=== PATIENT | female | born 1930 | race Caucasian/White ===

== ENCOUNTER 2017-02-27 08:23 | Day surgery (SDC) | payer OTHER, MEDICAID ==
[2017-02-27] MEDS ORDERED: NS 500 ML IV 500 ML IV ONE (08:58)
[2017-02-27] MEDS ORDERED: TETRACAINE 0.5% OPHTH 1 DOSE AFFEYE ONE ×2 (09:15→12:46)
[2017-02-27] MEDS ORDERED: VIGAMOX 0.5% OPHTH 1 DOSE AFFEYE ONE ×5 (09:20→13:06)
[2017-02-27] MEDS ORDERED: PROLENSA OPHTH 1 DOSE AFFEYE ONE (09:31)
[2017-02-27] MEDS ORDERED: ALPHAGAN-P OPHTH 1 DOSE AFFEYE ONE (09:32)
[2017-02-27] MEDS ORDERED: CYCLOGYL 1% OPHTH 1 DOSE OP ONE ×3 (09:33→09:35)
[2017-02-27] MEDS ORDERED: MYDRIACIL OPHTH 1 DOSE AFFEYE ONE ×3 (09:33→09:35)
[2017-02-27] MEDS ORDERED: AK-DILATE 2.5% OPHTH 1 DOSE OP ONE ×3 (09:33→09:35)
[2017-02-27] MEDS ORDERED: BETADINE OPHTH SOLN 5% EACHEYE ONE (12:46)
[2017-02-27] MEDS ORDERED: ADRENALINE CHL INJ IJ ONE (12:56)
[2017-02-27] MEDS ORDERED: XYLOCAINE-MPF 1% IJ ONE (12:56)
[2017-02-27] MEDS ORDERED: DUOVISC IO ONE (12:56)
[2017-02-27] MEDS ORDERED: BSS OPHTH (PLAIN) 500 ML with VANCOMYCIN HCL 500 MG VIAL 25 MG, ADRENALINE CHL INJ 1 MG IR ONE ×3 (12:56)
[2017-02-27 14:07] VITALS: BP 153/75
[2017-02-27] MEDS ORDERED: VERSED ONE (14:15)
[2017-02-27] MEDS ORDERED: DIPRIVAN VIAL ONE (14:15)
== END 2017-02-27 13:30 ==
LOC: SURG1 08:23
PROVIDERS: ATTEND Ophthalmology
PROC: 08DJ3ZZ Extraction of Right Lens, Percutaneous Approach (ICD-10-PCS; principal; 2017-02-27 13:45)
PROC: 08RJ3JZ Replacement of Right Lens with Synthetic Substitute, Percutaneous Approach (ICD-10-PCS; principal; 2017-02-27 13:45)
DX: H25.11 Age-related nuclear cataract, right eye (principal); H25.011 Cortical age-related cataract, right eye; H25.041 Posterior subcapsular polar age-related cataract, right eye
CPT/HCPCS: 99100; A4217; J0170; J2250; J3370; J3490

== ENCOUNTER 2017-03-13 08:43 | Day surgery (SDC) | payer OTHER, MEDICAID ==
[2017-03-13] MEDS ORDERED: NS 500 ML IV 500 ML IV ONE (09:40)
[2017-03-13] MEDS ORDERED: DUREZOL OPHTH 1 DOSE AFFEYE ONE (09:45)
[2017-03-13] MEDS ORDERED: TETRACAINE 0.5% OPHTH 1 DOSE AFFEYE ONE ×5 (09:45→12:35)
[2017-03-13] MEDS ORDERED: VIGAMOX 0.5% OPHTH 1 DOSE AFFEYE ONE ×3 (09:56→12:49)
[2017-03-13] MEDS ORDERED: PROLENSA OPHTH 1 DOSE AFFEYE ONE (09:57)
[2017-03-13] MEDS ORDERED: MYDRIACIL OPHTH 1 DOSE AFFEYE ONE ×3 (10:00→10:10)
[2017-03-13] MEDS ORDERED: AK-DILATE 2.5% OPHTH 1 DOSE OP ONE ×3 (10:00→10:10)
[2017-03-13] MEDS ORDERED: CYCLOGYL 1% OPHTH 1 DOSE OP ONE ×3 (10:00→10:10)
[2017-03-13] MEDS ORDERED: BETADINE OPHTH SOLN 5% EACHEYE ONE (12:28)
[2017-03-13] MEDS ORDERED: DUOVISC IO ONE (12:35)
[2017-03-13] MEDS ORDERED: XYLOCAINE-MPF 1% IJ ONE (12:35)
[2017-03-13] MEDS ORDERED: BSS OPHTH (PLAIN) 500 ML with VANCOMYCIN HCL 500 MG VIAL 25 MG, ADRENALINE CHL INJ 1 MG IR ONE ×3 (12:35)
[2017-03-13] MEDS ORDERED: ADRENALINE CHL INJ IJ ONE (12:35)
[2017-03-13] MEDS ORDERED: DIPRIVAN VIAL ONE (14:02)
[2017-03-13 14:21] VITALS: BP 151/78
== END 2017-03-13 13:15 | disposition home or self-care (01) ==
LOC: SURG1 08:43
PROVIDERS: ATTEND Ophthalmology
PROC: 08RK3JZ Replacement of Left Lens with Synthetic Substitute, Percutaneous Approach (ICD-10-PCS; principal; 2017-03-13 15:15)
PROC: 08DK3ZZ Extraction of Left Lens, Percutaneous Approach (ICD-10-PCS; principal; 2017-03-13 15:15)
DX: H25.12 Age-related nuclear cataract, left eye (principal); H25.012 Cortical age-related cataract, left eye; H25.042 Posterior subcapsular polar age-related cataract, left eye; H52.222 Regular astigmatism, left eye
CPT/HCPCS: 99100; A4217; J0170; J3370; J3490

== ENCOUNTER 2018-08-04 13:25 | Inpatient (IN) ==
[2018-08-04] MEDS ORDERED: NS 1000 ML 1,000 ML IV ONE (13:37)
[2018-08-04] MEDS ORDERED: PROVENTIL NEB TX 0.083% 2.5MG/ 3ML NEB PRN (13:44)
[2018-08-04] MEDS ORDERED: NS 1000 ML 1,000 ML ONE (14:01)
[2018-08-04 14:36] LABS: BASOPHILS % (AUTO) 0.3 % (0.2-1.0); EOSINOPHILS % (AUTO) 0.2 % (0.9-2.9); HEMATOCRIT 33.8 % (36.0-47.0); HEMOGLOBIN 11.1 g/dL (12.0-16.0); LYMPHOCYTES # (AUTO) 1.3 X10^3/uL (1.3-2.9); LYMPHOCYTES % (AUTO) 10.6 % (21.0-51.0); MEAN CORPUSCULAR HEMOGLOBIN 31.2 pg (27.0-34.0); MEAN CORPUSCULAR HGB CONC 32.9 g/dL (33.0-35.0); MEAN PLATELET VOLUME 7.7 fL (7.4-11.0); MONOCYTES # (AUTO) 1.8 x10^3/uL (0.3-0.8); MONOCYTES % (AUTO) 14.5 % (0.0-13.0); NEUTROPHILS # (AUTO) 9.3 x10^3/uL (2.2-4.8); NEUTROPHILS % (AUTO) 74.4 % (42.0-75.0); PLATELET COUNT 266 X10^3/uL (150.0-450.0); RED BLOOD COUNT 3.56 X10^6/uL (3.5-5.4); RED CELL DISTRIBUTION WIDTH 13.4 % (11.6-16.5); WHITE BLOOD COUNT 12.4 X10^3/uL (3.6-10.0)
[2018-08-04 14:40] LABS: ABG BASE EXCESS 6.2 mmol/L (-2.0-2.0)
--- NOTE | 2018-08-04 14:40 | RAD ---
Examination: PA chest History: COPD bronchitis renal failure Comparison 07/01/2016 Findings: The heart is upper normal in transverse diameter. There are bilateral lower lobe pulmonary densities consistent with pneumonia/atelectasis. This is most advanced at the left base where the diaphragm and costophrenic angle are obscured. The upper lungs remain clear. There is no pneumothorax. Impression: Borderline cardiomegaly with left lower lobe consolidation and more linear areas of atelectasis right base. A left pleural effusion may be present. Reported By:
[2018-08-04 14:41] LABS: ABG HCO3 31.8 mmol/L (22-26)
[2018-08-04] MEDS: DUONEB 0.5 MG/3 MG NEB SCH ×2 (14:48→17:16)
[2018-08-04] MEDS ORDERED: SALINE 3% 15 ML NEB TX NEB ONE ×2 (14:51→17:24)
[2018-08-04 14:52] LABS: ALBUMIN 1.9 g/dL (3.4-5.0); CALCIUM 8.9 mg/dL (8.5-10.1); CARBON DIOXIDE 30.3 mmol/L (21-32); COR CA(FOR HYPOALB) 10.6 mg/dL (8.5-10.1); CREATININE 1.21 mg/dL (0.55-1.02); MAGNESIUM 1.8 mg/dL (1.7-2.9); TOTAL PROTEIN 6.4 g/dL (6.4-8.2)
[2018-08-04] MEDS ORDERED: SOLU-Medrol 125 MG VIAL IVP SCH (15:00)
[2018-08-04] MEDS: ROCEPHIN VIAL 1 GRAM IVP SCH (15:32)
[2018-08-04] MEDS: ZITHROMAX INJ 500 MG VIAL 500 MG in NS 250 ML IV 250 ML IV SCH (15:33)
[2018-08-04 15:34] VITALS: BMI 20.3
[2018-08-04] MEDS: PULMICORT NEB TX 0.5 MG NEB SCH (21:00)
[2018-08-04] MEDS: BROVANA IN SCH (21:00)
[2018-08-04] MEDS: SOLU-Medrol 40 MG VIAL IVP SCH (21:12)
[2018-08-05] MEDS: DUONEB 0.5 MG/3 MG NEB SCH ×4 (00:45→17:01)
[2018-08-05 06:57] LABS: BASOPHILS % (AUTO) 0.4 % (0.2-1.0); HEMATOCRIT 32.7 % (36.0-47.0); LYMPHOCYTES # (AUTO) 0.5 X10^3/uL (1.3-2.9); MEAN CORPUSCULAR HEMOGLOBIN 31.6 pg (27.0-34.0); MEAN CORPUSCULAR HGB CONC 33.7 g/dL (33.0-35.0); MEAN CORPUSCULAR VOLUME 93.8 fL (80.0-100.0); MEAN PLATELET VOLUME 7.9 fL (7.4-11.0); MONOCYTES # (AUTO) 0.1 x10^3/uL (0.3-0.8); MONOCYTES % (AUTO) 1.6 % (0.0-13.0); NEUTROPHILS # (AUTO) 7.5 x10^3/uL (2.2-4.8); PLATELET COUNT 277 X10^3/uL (150.0-450.0); RED BLOOD COUNT 3.49 X10^6/uL (3.5-5.4); RED CELL DISTRIBUTION WIDTH 13.1 % (11.6-16.5); WHITE BLOOD COUNT 8.1 X10^3/uL (3.6-10.0)
--- NOTE | 2018-08-05 07:00 | RAD ---
HISTORY: Bronchitis, COPD Study: Chest AP portable Comparison: 08/04/2018 07/01/2016 Findings: The heart is enlarged. No definite congestive heart failure is noted. The aorta is somewhat ectatic. The lungs are well inflated and free of acute alveolar infiltrates. There is a focus of subsegmental atelectasis in the right lung base. A small left pleural effusion is likely present. IMPRESSION: Mild cardiomegaly without congestive heart failure Subsegmental atelectasis right lung base Small left pleural effusion Reported By:
[2018-08-05 07:22] LABS: PLATELET MORPHOLOGY COMMENT NORMAL (NORMAL)
[2018-08-05 07:23] LABS: ALANINE AMINOTRANSFERASE 40 Units/L (12-78); ALBUMIN 1.9 g/dL (3.4-5.0); ALKALINE PHOSPHATASE 73 Units/L (46-116); ASPARTATE AMINO TRANSFERASE 67 Units/L (15-37); BLOOD UREA NITROGEN 30 mg/dL (7-18); CALCIUM 8.8 mg/dL (8.5-10.1); CARBON DIOXIDE 28.3 mmol/L (21-32); CHLORIDE 107 mmol/L (98-107); COR CA(FOR HYPOALB) 10.5 mg/dL (8.5-10.1); COR NA(FOR HYPERGLY) 145 mmol/L (136-145); CREATININE 1.05 mg/dL (0.55-1.02); SODIUM 143 mmol/L (136-145); TOTAL PROTEIN 6.6 g/dL (6.4-8.2); eGFR NON BLACK RACES 52 (>60)
[2018-08-05] MEDS: SOLU-Medrol 40 MG VIAL IVP SCH ×3 (08:39→20:59)
[2018-08-05] MEDS ORDERED: NYSTATIN POWDER TOP PRN (09:30)
[2018-08-05] MEDS ORDERED: DUONEB 0.5 MG/3 MG IN SCH (09:30)
[2018-08-05] MEDS: BROVANA IN SCH ×2 (09:33→21:41)
[2018-08-05] MEDS: PULMICORT NEB TX 0.5 MG NEB SCH ×2 (09:33→21:36)
[2018-08-05] MEDS: ROCEPHIN VIAL 1 GRAM IVP SCH (09:46)
[2018-08-05] MEDS: ZITHROMAX INJ 500 MG VIAL 500 MG in NS 250 ML IV 250 ML IV SCH (09:46)
[2018-08-05] MEDS: NS 1000 ML 1,000 ML IV SCH (10:07)
[2018-08-05] MEDS ORDERED: COREG TAB 12.5 MG PO ONE (10:57)
[2018-08-05] MEDS: COREG TAB 12.5 MG PO SCH ×2 (11:03→21:03)
[2018-08-05] MEDS ORDERED: BUTT CREAM (COMPOUND) ONE (12:07)
[2018-08-05] MEDS ORDERED: BUTT CREAM (COMPOUND) TOP PRN (12:09)
[2018-08-05 14:06] LABS: BILIRUBIN,URINE NEGATIVE (NEGATIVE); BLOOD/HEMOGLOBIN,URINE 1+ (NEGATIVE); GLUCOSE, URINE NEGATIVE (NEGATIVE); KETONES,URINE NEGATIVE (NEGATIVE); LEUKOCYTE ESTERASE ,URINE NEGATIVE (NEGATIVE); NITRITES,URINE NEGATIVE (NEGATIVE); PROTEIN,URINE 2+ (NEGATIVE); UROBILINOGEN,URINE NORMAL (NORMAL)
[2018-08-05 14:16] LABS: APPEARANCE,URINE CLEAR (CLEAR); COLOR,URINE YELLOW (YELLOW); RBC,URINE 0-2 /HPF (NONE SEEN)
[2018-08-05 14:17] LABS: AMORPHOUS SEDIMENT,UR 1+ /HPF (NEGATIVE); BACTERIA,URINE TRACE /HPF (NEGATIVE); SQUAMOUS EPITHELIAL CELL,UR NEGATIVE /HPF (NEGATIVE)
[2018-08-05] MEDS: NORCO 10/325 TAB PO PRN ×2 (14:25→20:36)
--- NOTE | 2018-08-05 17:18 | DR.H&P ---
H&P - History & Physical for Day of: H&P Date: 08/04/18 - Chief Complaint Chief Complaint: CCC, INCREASED WHEEZING - History of Present Illness History of Present Illness: 87 WF ADMITTED WITH COPD EXACERBATION, FAILED OUTPT THERAPY. PT IS RESIDENT OF [facility], WITH COPD INCREASED COUGH, COLD, CONGESTION AND DIFFUSE WHEEZING. PT HAS PMH OF OA, COPD, HTN, ENDER - Past Medical History Past Medical History: COPD, Coronary Artery Disease, Dementia, Depression, Hypertension - Past Surgical History Surgical History: Appendectomy, Cholecystectomy - Family History Family Medical History: GA, Heart Failure, Hypertension - Social History Does patient currently use any type of tobacco product: No Have you used tobacco products in the last 12 months: No Type of Tobacco Use: None Does any household member use tobacco: No Alcohol Use: None Drug Use: None - Medications Home Medications: codeine Allergy (Verified 08/04/18 23:16) meperidine Allergy (Verified 08/04/18 23:16) CONTINUE taking the following medications atorvastatin 40 mg PO HS 08/04/18 [History] gabapentin 800 mg PO BID 08/04/18 [History] guaifenesin [Mucinex] 600 mg PO DAILY 08/04/18 [History] hydrocodone-acetaminophen 1 tab PO Q6HR PRN 08/04/18 [History] ipratropium-albuterol 1 neb INHALATION Q6H PRN 08/04/18 [History] levofloxacin 500 mg PO DAILY 08/04/18 [History] meloxicam 7.5 mg PO DAILY 08/04/18 [History] nystatin 1 applic TOPICAL Q12H PRN 08/04/18 [History] omeprazole 20 mg PO DAILY 08/04/18 [History] - Review of Systems Constitutional: Chills, Malaise Eyes: No Symptoms Reported ENT: No Symptoms Reported Respiratory: Cough, Shortness of Breath, SOB with Excertion, Sputum, Wheezing Cardiovascular: No Symptoms Reported Gastrointestinal: Nausea Genitourinary: No Symptoms Reported Musculoskeletal: Back Pain Skin: No Symptoms Reported Neurological: No Symptoms Reported - Physical Exam Vital Signs: Temperature 99.0 F Pulse Rate [Right Brachial] 76 Pulse Rate 90 Respiratory Rate 18 Blood Pressure [Left Arm] 138/86 Blood Pressure [Right Arm] 154/74 Blood Pressure 151/78 O2 Sat by Pulse Oximetry 91 Oriented: Normal Eyes: Normal Ear: Normal Nose: Normal Throat: Normal Respiratory: Rhonchi Throughout, Wheezes Throughout, RLL Diminished, LLL Diminished Cardiovascular: Normal : Normal Auscultation: Bowel Sounds: Normal Palpation: Normal Tenderness: Normal Skin: Normal Musculoskeletal: Normal Psychiatric: Normal Mood Description: Calm Speech Pattern: Clear, Appropriate - Assessment/Plan (1) COPD exacerbation Status: Acute Plan: ADMIT, PNEUMONIA PROTOCOL WITH BLOOD AND SPUTUM CULTURES. IV ATBX, RESP CARE, SUPPLEMENTAL O2. VERIFY HOME MEDICATION (2) CAD (coronary artery disease) Status: Chronic (3) Hyperlipidemia Status: Chronic (4) Hypertension Status: Chronic (5) GERD (gastroesophageal reflux disease) Status: Chronic (6) Anxiety Status: Chronic - Allergies Allergies/Adverse Reactions: Allergies Allergy/AdvReac Type Severity Reaction Status Date / Time codeine Allergy Verified 08/04/18 23:16 meperidine Allergy Verified 08/04/18 23:16
--- NOTE | 2018-08-05 17:21 | PCM.PROG ---
Progress Note - Progress Note for Day of Date of Exam: 08/05/18 - Subjective Subjective: 87 WF ADMITTED ON 08/04 WITH COPD EXACERBATION, PT CURRENTLY ON IV ATBX AND RESP THERAPY WITH SPUTUM CULTURE COLLECTED ON ADMISSION. PT CXR WITH MILD EFFUSION. BP MONITORING - Past Medical Family Social History Past Med/Fam/Surg Hx: No changes since H&P Allergies: Allergies codeine Allergy (Verified 08/04/18 23:16) meperidine Allergy (Verified 08/04/18 23:16) - Review of Systems ROS: No change since H&P - Vital Signs and I&O's Vital Signs: Temperature 99.0 F Pulse Rate [Right Brachial] 76 Pulse Rate 90 Respiratory Rate 18 Blood Pressure [Left Arm] 138/86 Blood Pressure [Right Arm] 154/74 Blood Pressure 151/78 O2 Sat by Pulse Oximetry 91 Intake and Output: Intake & Output 08/03/18 08/04/18 08/05/18 08/06/18 11:59 11:59 11:59 11:59 Intake Total 540 / 540 600 / 600 Output Total 300 / 300 Balance 540 / 540 300 / 300 - Physical Exam Oriented: Normal Eyes: Normal Ear: Normal Nose: Normal Throat: Normal Respiratory: Diminished, Rhonchi Cardiovascular: Normal : Normal Auscultation: Bowel Sounds: Normal Tenderness: Normal Skin: Normal Musculoskeletal: Normal Psychiatric: Normal Mood Description: Calm Speech Pattern: Clear, Appropriate - Laboratory and Diagnostics Result Diagrams: 08/05/18 06:45 08/05/18 06:45 Labs: 08/05/18 09:40 Sputum - Expectorated Sputum - Final 08/04/18 14:58 Sputum - Expectorated Sputum Sputum Culture - Final 08/04/18 14:58 Sputum - Expectorated Sputum - Final Laboratory WBC 8.1 X10^3/uL (3.6-10.0) 08/05/18 06:45 RBC 3.49 X10^6/uL (3.5-5.4) L 08/05/18 06:45 Hgb 11.0 g/dL (12.0-16.0) L 08/05/18 06:45 Hct 32.7 % (36.0-47.0) L 08/05/18 06:45 MCV 93.8 fL (80.0-100.0) 08/05/18 06:45 MCH 31.6 pg (27.0-34.0) 08/05/18 06:45 MCHC 33.7 g/dL (33.0-35.0) 08/05/18 06:45 RDW 13.1 % (11.6-16.5) 08/05/18 06:45 Plt Count 277 X10^3/uL (150.0-450.0) 08/05/18 06:45 Plt Count Comment Adequate (ADEQUATE) 08/05/18 06:45 MPV 7.9 fL (7.4-11.0) 08/05/18 06:45 Neut % (Auto) 92.0 % (42.0-75.0) H 08/05/18 06:45 Lymph % (Auto) 6.0 % (21.0-51.0) L 08/05/18 06:45 [place] % (Auto) 1.6 % (0.0-13.0) 08/05/18 06:45 Eos % (Auto) 0.0 % (0.9-2.9) L 08/05/18 06:45 Baso % (Auto) 0.4 % (0.2-1.0) 08/05/18 06:45 Neut # (Auto) 7.5 x10^3/uL (2.2-4.8) H 08/05/18 06:45 Lymph # (Auto) 0.5 X10^3/uL (1.3-2.9) L 08/05/18 06:45 [place] # (Auto) 0.1 x10^3/uL (0.3-0.8) L 08/05/18 06:45 Eos # (Auto) 0.0 x10^3/uL (0.0-0.2) 08/05/18 06:45 Baso # (Auto) 0.0 X10^3/uL (0.0-0.1) 08/05/18 06:45 Absolute Nucleated RBC 0.0 /100WBC 08/05/18 06:45 Total Counted 100 08/05/18 06:45 Neutrophils % (Manual) 90 % (39-76) H 08/05/18 06:45 Lymphocytes % (Manual) 8 % (13-43) L 08/05/18 06:45 Monocytes % (Manual) 2 % (4-9) L 08/05/18 06:45 Plt Morphology Comment Normal (NORMAL) 08/05/18 06:45 RBC Morphology Normal (NORMAL) 08/05/18 06:45 Sample Site Right brachial 08/04/18 14:26 ABG pH 7.420 (7.35-7.45) 08/04/18 14:26 ABG pCO2 49.0 mmHg (35.0-45.0) H 08/04/18 14:26 ABG pO2 69.0 mmHg (80.0-100.0) L 08/04/18 14:26 ABG HCO3 31.8 mmol/L (22-26) H* 08/04/18 14:26 ABG O2 Saturation 94.0 % (90-100) 08/04/18 14:26 ABG Base Excess 6.2 mmol/L (-2.0-2.0) H 08/04/18 14:26 Pete Test Na 08/04/18 14:26 A-a Gradient 69.0 mmHg 08/04/18 14:26 FiO2 28.0 08/04/18 14:26 Blood Gas Comments Khadra well aw 08/04/18 14:26 Sodium 143 mmol/L (136-145) 08/05/18 06:45 Corrected Sodium 145 mmol/L (136-145) 08/05/18 06:45 Potassium 3.8 mmol/L (3.5-5.1) 08/05/18 06:45 Chloride 107 mmol/L (98-107) 08/05/18 06:45 Carbon Dioxide 28.3 mmol/L (21-32) 08/05/18 06:45 BUN 30 mg/dL (7-18) H 08/05/18 06:45 Creatinine 1.05 mg/dL (0.55-1.02) H 08/05/18 06:45 Est GFR (MDRD) Af Amer > 60 (>60) 08/05/18 06:45 Est GFR (MDRD) Non-Af 52 (>60) L 08/05/18 06:45 Glucose 170 mg/dL (65-99) H 08/05/18 06:45 Calcium 8.8 mg/dL (8.5-10.1) 08/05/18 06:45 Corrected Calcium 10.5 mg/dL (8.5-10.1) H 08/05/18 06:45 Magnesium 1.8 mg/dL (1.7-2.9) 08/04/18 14:25 Total Bilirubin 0.20 mg/dL (0.2-1.0) 08/05/18 06:45 AST 67 Units/L (15-37) H 08/05/18 06:45 ALT 40 Units/L (12-78) 08/05/18 06:45 Alkaline Phosphatase 73 Units/L (46-116) 08/05/18 06:45 Total Protein 6.6 g/dL (6.4-8.2) 08/05/18 06:45 Albumin 1.9 g/dL (3.4-5.0) L 08/05/18 06:45 Globulin 4.7 g/dL (2.5-4.5) H 08/05/18 06:45 Albumin/Globulin Ratio 0.4 Ratio (1.1-2.1) L 08/05/18 06:45 Specimen Type Catherized urine 08/05/18 13:55 Urine Color Yellow (YELLOW) 08/05/18 13:55 Urine Appearance Clear (CLEAR) 08/05/18 13:55 Urine pH 5.0 (5.0 - 8.0) 08/05/18 13:55 Ur Specific [place] 1.015 (1.000-1.030) 08/05/18 13:55 Urine Protein 2+ (NEGATIVE) 08/05/18 13:55 Urine Glucose (UA) Negative (NEGATIVE) 08/05/18 13:55 Urine Ketones Negative (NEGATIVE) 08/05/18 13:55 Urine Occult Blood 1+ (NEGATIVE) 08/05/18 13:55 Urine Nitrite Negative (NEGATIVE) 08/05/18 13:55 Urine Bilirubin Negative (NEGATIVE) 08/05/18 13:55 Urine Urobilinogen Normal (NORMAL) 08/05/18 13:55 Ur Leukocyte Esterase Negative (NEGATIVE) 08/05/18 13:55 Urine RBC 0-2 /HPF (NONE SEEN) 08/05/18 13:55 Urine WBC 0-2 /HPF (NONE SEEN) 08/05/18 13:55 Ur Squamous Epith Cells Negative /HPF (NEGATIVE) 08/05/18 13:55 Amorphous Sediment 1+ /HPF (NEGATIVE) 08/05/18 13:55 Urine Bacteria Trace /HPF (NEGATIVE) 08/05/18 13:55 Ur Culture Indicated? Yes/culture set up 08/05/18 13:55 - Plan (1) COPD exacerbation Status: Acute Plan: CONTINUE PNEUMONIA PROTOCOL WITH BLOOD AND SPUTUM CULTURES. IV ATBX, RESP CARE, SUPPLEMENTAL O2. CONTINUE HOME MEDICATION (2) CAD (coronary artery disease) Status: Chronic (3) Hyperlipidemia Status: Chronic (4) Hypertension Status: Chronic (5) GERD (gastroesophageal reflux disease) Status: Chronic (6) Anxiety Status: Chronic
[2018-08-05] MEDS: MIRALAX POWDER (1 DOSE 17 G) PO SCH (21:02)
[2018-08-05] MEDS: NEURONTIN CAP 400 MG PO SCH (21:03)
[2018-08-05] MEDS: LIPITOR TAB 40 MG PO SCH (21:03)
[2018-08-06] MEDS: DUONEB 0.5 MG/3 MG NEB SCH ×5 (00:46→20:33)
[2018-08-06 06:12] LABS: BASOPHILS % (AUTO) 0.2 % (0.2-1.0); HEMATOCRIT 30.8 % (36.0-47.0); HEMOGLOBIN 10.2 g/dL (12.0-16.0); LYMPHOCYTES # (AUTO) 0.6 X10^3/uL (1.3-2.9); MEAN CORPUSCULAR HEMOGLOBIN 31.3 pg (27.0-34.0); MEAN CORPUSCULAR HGB CONC 33.2 g/dL (33.0-35.0); MEAN CORPUSCULAR VOLUME 94.4 fL (80.0-100.0); MEAN PLATELET VOLUME 7.7 fL (7.4-11.0); MONOCYTES # (AUTO) 0.3 x10^3/uL (0.3-0.8); NEUTROPHILS # (AUTO) 15.1 x10^3/uL (2.2-4.8); NEUTROPHILS % (AUTO) 93.8 % (42.0-75.0); PLATELET COUNT 276 X10^3/uL (150.0-450.0); RED BLOOD COUNT 3.26 X10^6/uL (3.5-5.4); RED CELL DISTRIBUTION WIDTH 13.4 % (11.6-16.5); WHITE BLOOD COUNT 16.1 X10^3/uL (3.6-10.0)
[2018-08-06] MEDS: SOLU-Medrol 40 MG VIAL IVP SCH ×3 (06:15→21:32)
[2018-08-06 06:21] LABS: ALANINE AMINOTRANSFERASE 75 Units/L (12-78); ALBUMIN 1.9 g/dL (3.4-5.0); ALKALINE PHOSPHATASE 66 Units/L (46-116); ASPARTATE AMINO TRANSFERASE 113 Units/L (15-37); BLOOD UREA NITROGEN 36 mg/dL (7-18); CALCIUM 8.9 mg/dL (8.5-10.1); CARBON DIOXIDE 28.9 mmol/L (21-32); CHLORIDE 107 mmol/L (98-107); COR CA(FOR HYPOALB) 10.6 mg/dL (8.5-10.1); COR NA(FOR HYPERGLY) 146 mmol/L (136-145); CREATININE 0.99 mg/dL (0.55-1.02); SODIUM 144 mmol/L (136-145); TOTAL PROTEIN 6.1 g/dL (6.4-8.2); eGFR NON BLACK RACES 56 (>60)
[2018-08-06 07:06] LABS: PLATELET MORPHOLOGY COMMENT NORMAL (NORMAL)
[2018-08-06] MEDS: BROVANA IN SCH (08:32)
[2018-08-06] MEDS: PULMICORT NEB TX 0.5 MG NEB SCH (08:32)
[2018-08-06] MEDS: COREG TAB 12.5 MG PO SCH ×2 (08:53→21:33)
[2018-08-06] MEDS: ROCEPHIN VIAL 1 GRAM IVP SCH (08:54)
[2018-08-06] MEDS: PriLOSEC PO SCH (08:54)
[2018-08-06] MEDS: ZITHROMAX INJ 500 MG VIAL 500 MG in NS 250 ML IV 250 ML IV SCH (08:54)
[2018-08-06] MEDS: NEURONTIN CAP 400 MG PO SCH ×2 (08:54→21:32)
[2018-08-06] MEDS: MUCINEX EXPECTORANT PO SCH (08:54)
[2018-08-06] MEDS: NOLVADEX PO SCH (09:50)
[2018-08-06] MEDS: NS 1000 ML 1,000 ML IV SCH (11:27)
[2018-08-06] MEDS: NORCO 10/325 TAB PO PRN (16:54)
--- NOTE | 2018-08-06 17:08 | PCM.PROG ---
Progress Note - Progress Note for Day of Date of Exam: 08/06/18 - Subjective Subjective: 87 WF ADMITTED ON 08/04 WITH COPD EXACERBATION, PT CURRENTLY ON IV ATBX AND RESP THERAPY WITH SPUTUM CULTURE COLLECTED ON ADMISSION WITH NORMAL RESP ADDIE.PT CXR WITH MILD EFFUSION ON 08/05, WILL REPEAT AM CXR. BP MONITORING - Past Medical Family Social History Past Med/Fam/Surg Hx: No changes since H&P Allergies: Allergies codeine Allergy (Verified 08/04/18 23:16) meperidine Allergy (Verified 08/04/18 23:16) - Review of Systems ROS: No change since H&P - Vital Signs and I&O's Vital Signs: Temperature 98.1 F Pulse Rate [Right Brachial] 79 Pulse Rate 78 Respiratory Rate 18 Blood Pressure [Left Arm] 154/84 Blood Pressure [Right Arm] 154/74 Blood Pressure 151/78 O2 Sat by Pulse Oximetry 92 Intake and Output: Intake & Output 08/04/18 08/05/18 08/06/18 08/07/18 11:59 11:59 11:59 11:59 Intake Total 540 / 540 1080 / 1080 2380 / 2380 Output Total 300 / 300 Balance 540 / 540 780 / 780 2380 / 2380 - Physical Exam Oriented: Normal Eyes: Normal Ear: Normal Nose: Normal Throat: Normal Respiratory: Diminished, Rhonchi Cardiovascular: Normal : Normal Auscultation: Bowel Sounds: Normal Tenderness: Normal Skin: Normal Musculoskeletal: Normal Psychiatric: Normal Mood Description: Calm Speech Pattern: Clear, Appropriate - Laboratory and Diagnostics Result Diagrams: 08/06/18 05:55 08/06/18 05:55 Labs: 08/04/18 14:25 Blood Blood Culture - Preliminary 08/04/18 14:15 Blood Blood Culture - Preliminary 08/05/18 13:55 Urine,Clean Catch Urine Culture - Preliminary 08/05/18 09:40 Sputum - Expectorated Sputum Sputum Culture - Preliminary 08/05/18 09:40 Sputum - Expectorated Sputum - Final 08/04/18 14:58 Sputum - Expectorated Sputum Sputum Culture - Final 08/04/18 14:58 Sputum - Expectorated Sputum - Final Laboratory WBC 16.1 X10^3/uL (3.6-10.0) H D 08/06/18 05:55 RBC 3.26 X10^6/uL (3.5-5.4) L 08/06/18 05:55 Hgb 10.2 g/dL (12.0-16.0) L 08/06/18 05:55 Hct 30.8 % (36.0-47.0) L 08/06/18 05:55 MCV 94.4 fL (80.0-100.0) 08/06/18 05:55 MCH 31.3 pg (27.0-34.0) 08/06/18 05:55 MCHC 33.2 g/dL (33.0-35.0) 08/06/18 05:55 RDW 13.4 % (11.6-16.5) 08/06/18 05:55 Plt Count 276 X10^3/uL (150.0-450.0) 08/06/18 05:55 Plt Count Comment Adequate (ADEQUATE) 08/06/18 05:55 MPV 7.7 fL (7.4-11.0) 08/06/18 05:55 Neut % (Auto) 93.8 % (42.0-75.0) H 08/06/18 05:55 Lymph % (Auto) 4.0 % (21.0-51.0) L 08/06/18 05:55 [place] % (Auto) 2.0 % (0.0-13.0) 08/06/18 05:55 Eos % (Auto) 0.0 % (0.9-2.9) L 08/06/18 05:55 Baso % (Auto) 0.2 % (0.2-1.0) 08/06/18 05:55 Neut # (Auto) 15.1 x10^3/uL (2.2-4.8) H 08/06/18 05:55 Lymph # (Auto) 0.6 X10^3/uL (1.3-2.9) L 08/06/18 05:55 [place] # (Auto) 0.3 x10^3/uL (0.3-0.8) 08/06/18 05:55 Eos # (Auto) 0.0 x10^3/uL (0.0-0.2) 08/06/18 05:55 Baso # (Auto) 0.0 X10^3/uL (0.0-0.1) 08/06/18 05:55 Absolute Nucleated RBC 0.0 /100WBC 08/06/18 05:55 Total Counted 100 08/06/18 05:55 Neutrophils % (Manual) 89 % (39-76) H 08/06/18 05:55 Lymphocytes % (Manual) 9 % (13-43) L 08/06/18 05:55 Monocytes % (Manual) 2 % (4-9) L 08/06/18 05:55 Plt Morphology Comment Normal (NORMAL) 08/06/18 05:55 RBC Morphology Normal (NORMAL) 08/06/18 05:55 Sample Site Right brachial 08/04/18 14:26 ABG pH 7.420 (7.35-7.45) 08/04/18 14:26 ABG pCO2 49.0 mmHg (35.0-45.0) H 08/04/18 14:26 ABG pO2 69.0 mmHg (80.0-100.0) L 08/04/18 14:26 ABG HCO3 31.8 mmol/L (22-26) H* 08/04/18 14:26 ABG O2 Saturation 94.0 % (90-100) 08/04/18 14:26 ABG Base Excess 6.2 mmol/L (-2.0-2.0) H 08/04/18 14:26 Pete Test Na 08/04/18 14:26 A-a Gradient 69.0 mmHg 08/04/18 14:26 FiO2 28.0 08/04/18 14:26 Blood Gas Comments Khadra well aw 08/04/18 14:26 Sodium 144 mmol/L (136-145) 08/06/18 05:55 Corrected Sodium 146 mmol/L (136-145) H 08/06/18 05:55 Potassium 3.8 mmol/L (3.5-5.1) 08/06/18 05:55 Chloride 107 mmol/L (98-107) 08/06/18 05:55 Carbon Dioxide 28.9 mmol/L (21-32) 08/06/18 05:55 BUN 36 mg/dL (7-18) H 08/06/18 05:55 Creatinine 0.99 mg/dL (0.55-1.02) 08/06/18 05:55 Est GFR (MDRD) Af Amer > 60 (>60) 08/06/18 05:55 Est GFR (MDRD) Non-Af 56 (>60) L 08/06/18 05:55 Glucose 163 mg/dL (65-99) H 08/06/18 05:55 Calcium 8.9 mg/dL (8.5-10.1) 08/06/18 05:55 Corrected Calcium 10.6 mg/dL (8.5-10.1) H 08/06/18 05:55 Magnesium 1.8 mg/dL (1.7-2.9) 08/04/18 14:25 Total Bilirubin 0.20 mg/dL (0.2-1.0) 08/06/18 05:55 AST 113 Units/L (15-37) H 08/06/18 05:55 ALT 75 Units/L (12-78) 08/06/18 05:55 Alkaline Phosphatase 66 Units/L (46-116) 08/06/18 05:55 Total Protein 6.1 g/dL (6.4-8.2) L 08/06/18 05:55 Albumin 1.9 g/dL (3.4-5.0) L 08/06/18 05:55 Globulin 4.2 g/dL (2.5-4.5) 08/06/18 05:55 Albumin/Globulin Ratio 0.5 Ratio (1.1-2.1) L 08/06/18 05:55 Specimen Type Catherized urine 08/05/18 13:55 Urine Color Yellow (YELLOW) 08/05/18 13:55 Urine Appearance Clear (CLEAR) 08/05/18 13:55 Urine pH 5.0 (5.0 - 8.0) 08/05/18 13:55 Ur Specific [place] 1.015 (1.000-1.030) 08/05/18 13:55 Urine Protein 2+ (NEGATIVE) 08/05/18 13:55 Urine Glucose (UA) Negative (NEGATIVE) 08/05/18 13:55 Urine Ketones Negative (NEGATIVE) 08/05/18 13:55 Urine Occult Blood 1+ (NEGATIVE) 08/05/18 13:55 Urine Nitrite Negative (NEGATIVE) 08/05/18 13:55 Urine Bilirubin Negative (NEGATIVE) 08/05/18 13:55 Urine Urobilinogen Normal (NORMAL) 08/05/18 13:55 Ur Leukocyte Esterase Negative (NEGATIVE) 08/05/18 13:55 Urine RBC 0-2 /HPF (NONE SEEN) 08/05/18 13:55 Urine WBC 0-2 /HPF (NONE SEEN) 08/05/18 13:55 Ur Squamous Epith Cells Negative /HPF (NEGATIVE) 08/05/18 13:55 Amorphous Sediment 1+ /HPF (NEGATIVE) 08/05/18 13:55 Urine Bacteria Trace /HPF (NEGATIVE) 08/05/18 13:55 Ur Culture Indicated? Yes/culture set up 08/05/18 13:55 - Plan (1) COPD exacerbation Status: Acute Plan: CONTINUE PNEUMONIA PROTOCOL WITH BLOOD AND SPUTUM CULTURES COLLECTED ON ADMISSION. IV ATBX, RESP CARE, SUPPLEMENTAL O2. CONTINUE HOME MEDICATION (2) CAD (coronary artery disease) Status: Chronic (3) Hyperlipidemia Status: Chronic (4) Hypertension Status: Chronic (5) GERD (gastroesophageal reflux disease) Status: Chronic (6) Anxiety Status: Chronic
[2018-08-06] MEDS: LIPITOR TAB 40 MG PO SCH (21:32)
[2018-08-06] MEDS: MIRALAX POWDER (1 DOSE 17 G) PO SCH (21:32)
[2018-08-07] MEDS: DUONEB 0.5 MG/3 MG NEB SCH ×5 (03:31→20:29)
[2018-08-07 05:17] LABS: BASOPHILS % (AUTO) 0.2 % (0.2-1.0); HEMATOCRIT 33.1 % (36.0-47.0); HEMOGLOBIN 10.9 g/dL (12.0-16.0); LYMPHOCYTES # (AUTO) 0.6 X10^3/uL (1.3-2.9); LYMPHOCYTES % (AUTO) 4.2 % (21.0-51.0); MEAN CORPUSCULAR HEMOGLOBIN 31.3 pg (27.0-34.0); MEAN CORPUSCULAR HGB CONC 32.9 g/dL (33.0-35.0); MEAN CORPUSCULAR VOLUME 95.1 fL (80.0-100.0); MEAN PLATELET VOLUME 7.5 fL (7.4-11.0); MONOCYTES # (AUTO) 0.3 x10^3/uL (0.3-0.8); MONOCYTES % (AUTO) 2.1 % (0.0-13.0); NEUTROPHILS % (AUTO) 93.5 % (42.0-75.0); PLATELET COUNT 306 X10^3/uL (150.0-450.0); RED BLOOD COUNT 3.48 X10^6/uL (3.5-5.4); RED CELL DISTRIBUTION WIDTH 13.2 % (11.6-16.5)
[2018-08-07 05:24] LABS: ALANINE AMINOTRANSFERASE 84 Units/L (12-78); ALBUMIN 2.1 g/dL (3.4-5.0); ALKALINE PHOSPHATASE 69 Units/L (46-116); ASPARTATE AMINO TRANSFERASE 84 Units/L (15-37); BLOOD UREA NITROGEN 34 mg/dL (7-18); CALCIUM 8.8 mg/dL (8.5-10.1); CARBON DIOXIDE 29.6 mmol/L (21-32); CHLORIDE 107 mmol/L (98-107); COR CA(FOR HYPOALB) 10.3 mg/dL (8.5-10.1); COR NA(FOR HYPERGLY) 146 mmol/L (136-145); CREATININE 1.04 mg/dL (0.55-1.02); SODIUM 145 mmol/L (136-145); TOTAL PROTEIN 6.2 g/dL (6.4-8.2); eGFR NON BLACK RACES 53 (>60)
[2018-08-07] MEDS: SOLU-Medrol 40 MG VIAL IVP SCH (05:31)
[2018-08-07 05:52] LABS: PLATELET MORPHOLOGY COMMENT NORMAL (NORMAL)
--- NOTE | 2018-08-07 06:20 | RAD ---
HISTORY: Bronchitis, COPD. Prior history of coronary artery disease, hypertension, COPD and renal failure. Study: Single-view chest Comparison: 08/05/2018. Technique: Patient is markedly rotated toward the right. Findings: Trachea is midline. Heart size is difficult to assess with the degree of rightward rotation. The heart size is probably normal. Significant increase in bibasilar density is seen compared to the prior study, likely representing increasing atelectasis and/or pleural fluid. Upper lung regions are clear. The multiple healed rib fractures on the left. IMPRESSION: Increasing bibasilar densities, likely representing increasing atelectasis or pleural fluid. Reported By:
[2018-08-07] MEDS: MUCINEX EXPECTORANT PO SCH (08:41)
[2018-08-07] MEDS: ROCEPHIN VIAL 1 GRAM IVP SCH (08:41)
[2018-08-07] MEDS: NEURONTIN CAP 400 MG PO SCH ×2 (08:41→22:10)
[2018-08-07] MEDS: PriLOSEC PO SCH (08:41)
[2018-08-07] MEDS: COREG TAB 12.5 MG PO SCH ×2 (08:41→22:11)
[2018-08-07] MEDS: ZITHROMAX INJ 500 MG VIAL 500 MG in NS 250 ML IV 250 ML IV SCH (08:42)
[2018-08-07] MEDS: PULMICORT NEB TX 0.5 MG NEB SCH ×2 (08:43→20:30)
[2018-08-07] MEDS: BROVANA IN SCH ×2 (08:43→20:31)
[2018-08-07] MEDS: NOLVADEX PO SCH (08:48)
[2018-08-07] MEDS ORDERED: LASIX IVP ONE ×2 (09:13→09:56)
[2018-08-07] MEDS: NS 1000 ML 1,000 ML IV SCH (10:11)
[2018-08-07] MEDS: NORCO 10/325 TAB PO PRN (16:10)
--- NOTE | 2018-08-07 18:02 | PCM.PROG ---
Progress Note - Progress Note for Day of Date of Exam: 08/07/18 - Subjective Subjective: 87 WF ADMITTED ON 08/04 WITH COPD EXACERBATION, PT CURRENTLY ON IV ATBX AND RESP THERAPY WITH SPUTUM CULTURE COLLECTED ON ADMISSION WITH NORMAL RESP ADDIE.PT CXR WITH THIS AM WITH BIBASILAR DENSITY, IMPROVED WHEEZING ON EXAM WITH MILD LOWER DMINISHED LUNG SOUNDS, WILL ADD LASIX IV WITH STRICT I & OS. WILL REPEAT AM CXR. BP MONITORING - Past Medical Family Social History Past Med/Fam/Surg Hx: No changes since H&P Allergies: Allergies codeine Allergy (Verified 08/04/18 23:16) meperidine Allergy (Verified 08/04/18 23:16) - Review of Systems ROS: No change since H&P - Vital Signs and I&O's Vital Signs: Temperature 98.0 F Pulse Rate [Right Brachial] 85 Pulse Rate 84 Respiratory Rate 18 Blood Pressure [Left Arm] 122/70 Blood Pressure [Right Arm] 154/74 Blood Pressure 151/78 O2 Sat by Pulse Oximetry 95 Intake and Output: Intake & Output 08/05/18 08/06/18 08/07/18 08/08/18 11:59 11:59 11:59 11:59 Intake Total 540 / 540 1080 / 1080 3168 / 3168 740 / 740 Output Total 300 / 300 1600 / 1600 Balance 540 / 540 780 / 780 3168 / 3168 -860 / -860 - Physical Exam Oriented: Normal Eyes: Normal Ear: Normal Nose: Normal Throat: Normal Respiratory: Diminished, Rhonchi Cardiovascular: Normal : Normal Auscultation: Bowel Sounds: Normal Tenderness: Normal Skin: Normal Musculoskeletal: Normal Psychiatric: Normal Mood Description: Calm Speech Pattern: Clear, Appropriate - Laboratory and Diagnostics Result Diagrams: 08/07/18 05:00 08/07/18 05:00 Labs: 08/05/18 13:55 Urine,Clean Catch Urine Culture - Final 08/05/18 09:40 Sputum - Expectorated Sputum Sputum Culture - Final 08/05/18 09:40 Sputum - Expectorated Sputum - Final 08/04/18 14:25 Blood Blood Culture - Preliminary 08/04/18 14:15 Blood Blood Culture - Preliminary 08/04/18 14:58 Sputum - Expectorated Sputum Sputum Culture - Final 08/04/18 14:58 Sputum - Expectorated Sputum - Final Laboratory WBC 15.0 X10^3/uL (3.6-10.0) H 08/07/18 05:00 RBC 3.48 X10^6/uL (3.5-5.4) L 08/07/18 05:00 Hgb 10.9 g/dL (12.0-16.0) L 08/07/18 05:00 Hct 33.1 % (36.0-47.0) L 08/07/18 05:00 MCV 95.1 fL (80.0-100.0) 08/07/18 05:00 MCH 31.3 pg (27.0-34.0) 08/07/18 05:00 MCHC 32.9 g/dL (33.0-35.0) L 08/07/18 05:00 RDW 13.2 % (11.6-16.5) 08/07/18 05:00 Plt Count 306 X10^3/uL (150.0-450.0) 08/07/18 05:00 Plt Count Comment Adequate (ADEQUATE) 08/07/18 05:00 MPV 7.5 fL (7.4-11.0) 08/07/18 05:00 Neut % (Auto) 93.5 % (42.0-75.0) H 08/07/18 05:00 Lymph % (Auto) 4.2 % (21.0-51.0) L 08/07/18 05:00 [place] % (Auto) 2.1 % (0.0-13.0) 08/07/18 05:00 Eos % (Auto) 0.0 % (0.9-2.9) L 08/07/18 05:00 Baso % (Auto) 0.2 % (0.2-1.0) 08/07/18 05:00 Neut # (Auto) 14.0 x10^3/uL (2.2-4.8) H 08/07/18 05:00 Lymph # (Auto) 0.6 X10^3/uL (1.3-2.9) L 08/07/18 05:00 [place] # (Auto) 0.3 x10^3/uL (0.3-0.8) 08/07/18 05:00 Eos # (Auto) 0.0 x10^3/uL (0.0-0.2) 08/07/18 05:00 Baso # (Auto) 0.0 X10^3/uL (0.0-0.1) 08/07/18 05:00 Absolute Nucleated RBC 0.0 /100WBC 08/07/18 05:00 Total Counted 100 08/07/18 05:00 Neutrophils % (Manual) 96 % (39-76) H 08/07/18 05:00 Lymphocytes % (Manual) 3 % (13-43) L 08/07/18 05:00 Monocytes % (Manual) 1 % (4-9) L 08/07/18 05:00 Plt Morphology Comment Normal (NORMAL) 08/07/18 05:00 RBC Morphology Normal (NORMAL) 08/07/18 05:00 Sample Site Right brachial 08/04/18 14:26 ABG pH 7.420 (7.35-7.45) 08/04/18 14:26 ABG pCO2 49.0 mmHg (35.0-45.0) H 08/04/18 14:26 ABG pO2 69.0 mmHg (80.0-100.0) L 08/04/18 14:26 ABG HCO3 31.8 mmol/L (22-26) H* 08/04/18 14:26 ABG O2 Saturation 94.0 % (90-100) 08/04/18 14:26 ABG Base Excess 6.2 mmol/L (-2.0-2.0) H 08/04/18 14:26 Pete Test Na 08/04/18 14:26 A-a Gradient 69.0 mmHg 08/04/18 14:26 FiO2 28.0 08/04/18 14:26 Blood Gas Comments Khadra well aw 08/04/18 14:26 Sodium 145 mmol/L (136-145) 08/07/18 05:00 Corrected Sodium 146 mmol/L (136-145) H 08/07/18 05:00 Potassium 4.2 mmol/L (3.5-5.1) 08/07/18 05:00 Chloride 107 mmol/L (98-107) 08/07/18 05:00 Carbon Dioxide 29.6 mmol/L (21-32) 08/07/18 05:00 BUN 34 mg/dL (7-18) H 08/07/18 05:00 Creatinine 1.04 mg/dL (0.55-1.02) H 08/07/18 05:00 Est GFR (MDRD) Af Amer > 60 (>60) 08/07/18 05:00 Est GFR (MDRD) Non-Af 53 (>60) L 08/07/18 05:00 Glucose 157 mg/dL (65-99) H 08/07/18 05:00 Calcium 8.8 mg/dL (8.5-10.1) 08/07/18 05:00 Corrected Calcium 10.3 mg/dL (8.5-10.1) H 08/07/18 05:00 Magnesium 1.8 mg/dL (1.7-2.9) 08/04/18 14:25 Total Bilirubin 0.30 mg/dL (0.2-1.0) 08/07/18 05:00 AST 84 Units/L (15-37) H 08/07/18 05:00 ALT 84 Units/L (12-78) H 08/07/18 05:00 Alkaline Phosphatase 69 Units/L (46-116) 08/07/18 05:00 Total Protein 6.2 g/dL (6.4-8.2) L 08/07/18 05:00 Albumin 2.1 g/dL (3.4-5.0) L 08/07/18 05:00 Globulin 4.1 g/dL (2.5-4.5) 08/07/18 05:00 Albumin/Globulin Ratio 0.5 Ratio (1.1-2.1) L 08/07/18 05:00 Specimen Type Catherized urine 08/05/18 13:55 Urine Color Yellow (YELLOW) 08/05/18 13:55 Urine Appearance Clear (CLEAR) 08/05/18 13:55 Urine pH 5.0 (5.0 - 8.0) 08/05/18 13:55 Ur Specific [place] 1.015 (1.000-1.030) 08/05/18 13:55 Urine Protein 2+ (NEGATIVE) 08/05/18 13:55 Urine Glucose (UA) Negative (NEGATIVE) 08/05/18 13:55 Urine Ketones Negative (NEGATIVE) 08/05/18 13:55 Urine Occult Blood 1+ (NEGATIVE) 08/05/18 13:55 Urine Nitrite Negative (NEGATIVE) 08/05/18 13:55 Urine Bilirubin Negative (NEGATIVE) 08/05/18 13:55 Urine Urobilinogen Normal (NORMAL) 08/05/18 13:55 Ur Leukocyte Esterase Negative (NEGATIVE) 08/05/18 13:55 Urine RBC 0-2 /HPF (NONE SEEN) 08/05/18 13:55 Urine WBC 0-2 /HPF (NONE SEEN) 08/05/18 13:55 Ur Squamous Epith Cells Negative /HPF (NEGATIVE) 08/05/18 13:55 Amorphous Sediment 1+ /HPF (NEGATIVE) 08/05/18 13:55 Urine Bacteria Trace /HPF (NEGATIVE) 08/05/18 13:55 Ur Culture Indicated? Yes/culture set up 08/05/18 13:55 - Plan (1) COPD exacerbation Status: Acute Plan: CONTINUE PNEUMONIA PROTOCOL WITH BLOOD AND SPUTUM CULTURES COLLECTED ON ADMISSION. IV ATBX, RESP CARE, SUPPLEMENTAL O2. CONTINUE HOME MEDICATION (2) CAD (coronary artery disease) Status: Chronic (3) Hyperlipidemia Status: Chronic (4) Hypertension Status: Chronic (5) GERD (gastroesophageal reflux disease) Status: Chronic (6) Anxiety Status: Chronic
[2018-08-07] MEDS: MIRALAX POWDER (1 DOSE 17 G) PO SCH (22:11)
[2018-08-07] MEDS: LIPITOR TAB 40 MG PO SCH (22:12)
[2018-08-07] MEDS ORDERED: RESTORIL CAP 15 MG PO PRN (23:36)
[2018-08-08] MEDS: DUONEB 0.5 MG/3 MG NEB SCH ×2 (03:59→11:51)
[2018-08-08 06:16] LABS: BASOPHILS % (AUTO) 0.1 % (0.2-1.0); EOSINOPHILS % (AUTO) 0.1 % (0.9-2.9); HEMATOCRIT 34.7 % (36.0-47.0); HEMOGLOBIN 11.5 g/dL (12.0-16.0); LYMPHOCYTES # (AUTO) 1.6 X10^3/uL (1.3-2.9); LYMPHOCYTES % (AUTO) 10.4 % (21.0-51.0); MEAN CORPUSCULAR HGB CONC 33.1 g/dL (33.0-35.0); MEAN CORPUSCULAR VOLUME 93.8 fL (80.0-100.0); MEAN PLATELET VOLUME 7.7 fL (7.4-11.0); MONOCYTES # (AUTO) 1.3 x10^3/uL (0.3-0.8); MONOCYTES % (AUTO) 8.5 % (0.0-13.0); NEUTROPHILS # (AUTO) 12.2 x10^3/uL (2.2-4.8); NEUTROPHILS % (AUTO) 80.9 % (42.0-75.0); PLATELET COUNT 300 X10^3/uL (150.0-450.0); RED CELL DISTRIBUTION WIDTH 13.4 % (11.6-16.5); WHITE BLOOD COUNT 15.1 X10^3/uL (3.6-10.0)
[2018-08-08 06:18] LABS: ABG BASE EXCESS 13.7 mmol/L (-2.0-2.0)
[2018-08-08 06:19] LABS: ABG HCO3 37.6 mmol/L (22-26)
[2018-08-08 06:28] LABS: ALANINE AMINOTRANSFERASE 65 Units/L (12-78); ALBUMIN 2.1 g/dL (3.4-5.0); ALKALINE PHOSPHATASE 71 Units/L (46-116); ASPARTATE AMINO TRANSFERASE 36 Units/L (15-37); BLOOD UREA NITROGEN 26 mg/dL (7-18); CALCIUM 8.4 mg/dL (8.5-10.1); CARBON DIOXIDE 33.6 mmol/L (21-32); CHLORIDE 107 mmol/L (98-107); COR CA(FOR HYPOALB) 9.9 mg/dL (8.5-10.1); CREATININE 1.03 mg/dL (0.55-1.02); SODIUM 149 mmol/L (136-145); eGFR NON BLACK RACES 54 (>60)
--- NOTE | 2018-08-08 07:20 | RAD ---
HISTORY: COPD, bronchitis Study: Chest AP portable Comparison: 08/07/2018 Findings: The patient is rotated to the right. The heart is enlarged. The aorta is ectatic. The right lung and left upper lung stein remain free of acute infiltrates. Increased density is present in the retrocardiac area of the left lower lobe which could be due to atelectasis, infiltrate or effusion. It is unchanged in appearance from the prior examination. The bony thorax is unremarkable with the exception of multiple healed rib fractures on the left. IMPRESSION: No significant change from the prior examination Reported By:
[2018-08-08] MEDS: NORCO 10/325 TAB PO PRN (08:45)
[2018-08-08] MEDS: BROVANA IN SCH (08:57)
[2018-08-08] MEDS: PULMICORT NEB TX 0.5 MG NEB SCH (08:57)
[2018-08-08] MEDS: COREG TAB 12.5 MG PO SCH (10:06)
[2018-08-08] MEDS: NEURONTIN CAP 400 MG PO SCH (10:06)
[2018-08-08] MEDS: MUCINEX EXPECTORANT PO SCH (10:06)
[2018-08-08] MEDS: NOLVADEX PO SCH (10:07)
[2018-08-08] MEDS: ROCEPHIN VIAL 1 GRAM IVP SCH (10:07)
[2018-08-08] MEDS: NS 1000 ML 1,000 ML IV SCH (10:07)
[2018-08-08] MEDS: PriLOSEC PO SCH (10:07)
[2018-08-08] MEDS: ZITHROMAX INJ 500 MG VIAL 500 MG in NS 250 ML IV 250 ML IV SCH (10:07)
[2018-08-08 13:17] VITALS: BP 126/69
== END 2018-08-08 13:45 | DRG 202 ==
LOC: MED/SURG 13:38
PROVIDERS: ADMIT Internal Medicine; ATTEND Internal Medicine
DX: J44.1 Chronic obstructive pulmonary disease with (acute) exacerbation; M19.90 Unspecified osteoarthritis, unspecified site; J90 Pleural effusion, not elsewhere classified; K21.9 Gastro-esophageal reflux disease without esophagitis; J20.8 Acute bronchitis due to other specified organisms; E78.2 Mixed hyperlipidemia; F41.8 Other specified anxiety disorders; R94.4 Abnormal results of kidney function studies; R26.89 Other abnormalities of gait and mobility; I10 Essential (primary) hypertension; I25.10 Atherosclerotic heart disease of native coronary artery without angina pectoris; R06.02 Shortness of breath; Z79.899 Other long term (current) drug therapy
CPT/HCPCS: 36415; 36600; 71010; 71045; 80053; 81001; 82803; 83735; 85025; 87040; 87070; 87086; 87205; 94640; 94760; 97110; 97162; 97166; 97530; 97535; A4222; J0456; J0696; J1940; J2920; J7030; J7050; J7620; J7626